=== PATIENT | male | born 1955 | race Caucasian/White ===

== ENCOUNTER 2019-03-03 12:00 | Outpatient (RCR) | payer MEDICAID, SELFPAY ==
--- NOTE | 2019-02-25 13:16 | HP.OTEVAL_ITS ---
Patient's Visit Information JOHN ELMORE is a 63 year old M, referred to Occupational Therapy by ALBA JENNINGS, with a diagnosis of R wrist tenonditis. Date of Evaluation: 01/28/19 Occupational Therapist: Elizabeth Frias, OTR/L - Subjective Subjective: Arrived and noted that pain in right wrist and thumb started about two weeks ago when he went to picking up a foot stool and felt a 'pop'. He noted that since he has been in increased pain. He noted that he has PMHx of 4-5 years ago injury to right wrist with increased ligament damage. Noted that he had Legionnaires' PNA. 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 - Pain R wrist 8 Pain Intensity Range: 7, 10 R thumb 8 Pain Intensity Range: 7, 10 - ROM Wrist: flexion R 0-55, L 0-34; ext R 0-44, L 0-52 MP: R 0-36, L WFL IP: R 0-67, L WFL Radial Abduction: R 0-25, L 0-32 MP: WFL PIP: WFL DIP: WFL - Strength Supervisor Screen Making: R 43, L 59 Lateral Pinch: R 4, L 9 Tripod Pinch: R 9, L 13 Tip-to-Tip Pinch: R held, L 2 - Edema Proximal Phalanx: R 7.1 cm, L 6.9 cm - Sensation Thumb: R 3.61, L 3.22 Index: R 2.83, L 2.83 Middle: R 3.22, L 2.83 Ring: R 3.22, L 2.83 Little: R 3.22, L 3.22 - Special Tests WHAT Test: positive - Quick DASH-Disab of Arm,Shoulder& Hand Quick DASH Score: 52.2725 - Goals Goal:: John to 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 Goal:: John to increased ROM similar to L hand to promote increased LINDSEY Mnd strenght by d/c. Goal:: John to have no more than 1-2/10 pain in and out of brace 4/5 trials 80% of the time by d/c. Goal:: John to be (i) to complete ergonomic and joint protection techniques 4/5 techniques to promote increased ROM by d/c. Goal:: John to be (i) to return to PLOF for all ADL/IAdls 4/5 trials 80% of the time by d/c. Goal:: John to be (I) to complete HEP to promote increased strength and decreased pain 4/5 trials 80% of the time by d/c. - Rehabilitation General Assessment: John completed OT evaluation on this date of 01/28/19. He noted past trauma to right wrist and hand from when he was 14 years old. He exhibits increased pain and decreased strength of R UE. Skilled OT warranted to promote returning to PLOF. Rehabilitation Potential: Good - Anticipated Interventions Anticipated Interventions: A/AAROM/PROM, Strengthening, Edema Control, Triggerpoint Release, Desensitization, Modalities, Orthoses, Joint Protection/Energy Conservation, Ergonomic Education, ADL Training, Caregiver Training, Home Program - Visit Plan Frequency: 2x /Week Duration: 4 Weeks General Plan: John to increase strength, ROM, pain management, and general return to PLOF by d/c. TEXT: Thank you for the opportunity to evaluate your patient. For Medicare and Medicare HMO plans, please review the plan of care and approve it. It will need to be FAXED BACK to us at [phone] for Medicare purposes. Please let me know if there are questions or concerns regarding this plan of care. Physician Signature: Date:
--- NOTE | 2019-03-03 12:23 | HP.OTREVAL ---
ALBA JENNINGS, It has been my pleasure to treat JOHN ELMORE over the last 9 visits for R wrist tenonditis. Please see the progress note below for an update on the occupational therapy plan of care! Subjective: Arrived and noted that still having popping in forearm that is causing pain. Noted he does not feel he has made any progress. Objective/Function: Completed reassessment on this date of 03/03/19: ROM: thumb: - opposition: R 0-29, L WFL. - radial adduction: R 0-50, L WFL. - MP: R 0-43, L WFL. - IP: R 0-70, L WFL. Strength: - projection camera operator: R 47, L 75. - lateral R 10 , L 19. - three jaw dieter: R 10, L 16. Positive Whiting test and olivia. Pain with resistance movements as well as when palpation of A1 serena at thumb. Pain with supination. He has gained strength in projection camera operator and pinch strength. Plan Frequency: 2x /Week Duration: medical hold Visits in this POC: 9 Plan: John will be put on medical hold this time. He noted he has not made any improvement. He has completed conservative treatment for de Quervains of thumb but tenderness with palpation of A1 serena at thumb may indicate trigger finger. Additionally, he is very sensitive around lateral epicondyle and thumb. He has made minimal progress with pain management and is to return to doctor. Goals - Goals Goal:: John to increased R projection camera operator by 15-20 lbs to promote increased strength and endurance of ADL/IADls by d/c. Goal:: John to increased ROM similar to L hand to promote increased LINDSEY Mnd strenght by d/c. Goal:: John to have no more than 1-2/10 pain in and out of brace 4/5 trials 80% of the time by d/c. Goal:: John to be (i) to complete ergonomic and joint protection techniques 4/5 techniques to promote increased ROM by d/c. Goal:: John to be (i) to return to PLOF for all ADL/IAdls 4/5 trials 80% of the time by d/c. Goal:: John to be (I) to complete HEP to promote increased strength and decreased pain 4/5 trials 80% of the time by d/c. Anticipated Interventions Anticipated Interventions: A/AAROM/PROM, Strengthening, Edema Control, Triggerpoint Release, Desensitization, Modalities, Orthoses, Joint Protection/Energy Conservation, Ergonomic Education, ADL Training, Caregiver Training, Home Program Please do not hesitate to contact me at [phone] by phone or if you have questions or concerns regarding this new plan of care! Sincerely, Elizabeth Frias, OTR/L
--- NOTE | 2019-04-01 07:42 | HP.OTDCSUM_ITS ---
HP - OT D/C Summary It has been my pleasure to treat JOHN ELMORE under orders from ALBA JENNINGS, for the diagnosis of R wrist tenonditis for a total of 9 visit(s). Please see the following information for a summary of their discharge status. - Overall Improvement % Improvement: 0 - Objective Objective/Function: Completed reassessment on this date of 03/03/19: ROM: thumb: - opposition: R 0-29, L WFL. - radial adduction: R 0-50, L WFL. - MP: R 0-43, L WFL. - IP: R 0-70, L WFL. Strength: - health social work professor: R 47, L 75. - lateral R 10 , L 19. - three jaw dieter: R 10, L 16. Positive Whiting test and olivia. Pain with resistance movements as well as when palpation of A1 serena at thumb. Pain with supination. He has gained strength in health social work professor and pinch strength. - Goals Patient Goals: Regain Mobility, Regain Strength, Decrease Pain, Return to Work, Improve Fine Motor Skills, Use Hand/Wrist/Arm Normally Again, Sleep Better, Decrease Tingling/Numbness, Increase ROM, Be More Independent in ADLS, Resume Former Household Responsibilities (Cooking,Cleaning,Yard, etc.), Resume Hobbies Goal:: John to increased R health social work professor by 15-20 lbs to promote increased strength and endurance of ADL/IADls by d/c. Goal:: John to increased ROM similar to L hand to promote increased LINDSEY Mnd strenght by d/c. Goal:: John to have no more than 1-2/10 pain in and out of brace 4/5 trials 80% of the time by d/c. Goal:: John to be (i) to complete ergonomic and joint protection techniques 4/5 techniques to promote increased ROM by d/c. Goal:: John to be (i) to return to PLOF for all ADL/IAdls 4/5 trials 80% of the time by d/c. Goal:: John to be (I) to complete HEP to promote increased strength and decreased pain 4/5 trials 80% of the time by d/c. - Plan Plan: John will be put on medical hold this time. He noted he has not made any improvement. He has completed conservative treatment for de Quervains of thumb but tenderness with palpation of A1 serena at thumb may indicate trigger finger. Additionally, he is very sensitive around lateral epicondyle and thumb. He has made minimal progress with pain management and is to return to doctor. - D/C Information If there are questions or concerns regarding this patient's occupational therapy, please fell free to call me at [phone]. Thank you for the referral of this patient. Sincerely, Elizabeth Frias, OTR/L
== END 2019-03-03 19:00 | disposition home or self-care (01) ==
LOC: OT 12:00
DX: M77.8 Other enthesopathies, not elsewhere classified (principal)
CPT/HCPCS: 97166; 97168; 97530; 97760; 97763

== ENCOUNTER 2023-01-19 12:30 | Inpatient (IN) | payer MEDICAID, SELFPAY ==
--- NOTE | 2023-01-19 01:20 | RAD_ITS ---
STUDY: X-RAY CHEST REASON FOR EXAM: Male, 67 years old. Shortness of breath. Lower extremity swelling. TECHNIQUE: PA and lateral views of the chest. COMPARISON: Comparison is made with prior study dated November 05, 2016. FINDINGS: EKG electrodes are seen. There is evidence of increased interstitial markings at the lung bases as well as in the right upper lobe. This most likely represents interstitial scarring. This has progressed as compared to prior study. Hyperinflation. There is no demonstrated pleural abnormality. Sternal cerclage wires and vascular clips are present from a prior sternotomy and coronary artery bypass graft procedure (CABG). Normal mediastinum and jj. Normal visualized pulmonary arteries. There is atherosclerotic calcification of the aortic arch with tortuosity. There are diffuse degenerative changes of the visualized thoracic spine. Normal visualized ribs, clavicles, and shoulders. There is no demonstrated abnormality of the visualized soft tissue structures of the upper abdomen. RAD/Chest PA and Lateral IMPRESSION: Increased interstitial markings in the lower lobes as well as the right upper lobe suggests of scarring. This has progressed as compared to prior study. Electronically Signed: Benji Spivey MD at 14:10 EST ,
[2023-01-19 12:32] VITALS: BP 112/63; PULSE 84; RESP 18; TEMP 36.4; O2SAT 100; BMI 23.7
--- NOTE | 2023-01-19 12:47 | EKG12_ITS ---
Test Reason : EDEMA LEG Blood Pressure : / mmHG Vent. Rate : 062 BPM Atrial Rate : 000 BPM P-R Int : 000 ms QRS Dur : 114 ms QT Int : 436 ms P-R-T Axes : 000 -67 113 degrees QTc Int : 442 ms Atrial fibrillation Left axis deviation Nonspecific ST and T wave abnormality Abnormal ECG Confirmed by SAI ROMERO, AIDE ([id number]), editor news BRADFORD SWEENEY ([id number]) on 01/24/2023 12:22:40 PM Referred By: CLAYTON Confirmed By:AIDE GIBBS MD
[2023-01-19 13:12] LABS: Absolute Lymphocyte Count 1.44 X10^3/uL (0.83-4.51); Absolute Neutrophil Count 3.1 X10^3/uL (2.0-7.7); Basophil# 0.07 X10^3/uL; Basophil% 1.1 % (0-1); Eosinophil# 0.88 X10^3/uL; Eosinophils% 13.7 % (0-5); Hematocrit 38.7 % (40-54); Hemoglobin 12.7 g/dL (13.0-16.5); Lymphocyte # 1.44 X10^3/ul (0.83-4.51); Lymphocyte % 22.5 % (19-41); Mean Corp Hgb Conc 32.8 g/dL (32-36); Mean Corpuscular Hgb 30.1 pg (27.0-32.0); Mean Corpuscular Volume 91.7 fL (80-94); Mean Platelet Vol. 8.9 fl (6.2-12.0); Monocyte# 0.88 X10^3/uL; Monocyte% 13.7 % (0-10); NRBC Flagged by Analyzer 0 % (0-5); Neutrophil # 3.13 X10^3/uL (2.7-7.7); Neutrophil % 48.8 % (47-70); Platelet Count 175 K/mm3 (150-450); RBC Distribution Width CV 13.9 % (11.6-14.6); RBC Distribution Width SD 46.5 fl (35.1-43.9); Red Blood Count 4.22 M/mm3 (4.6-6.2); White Blood Count 6.4 K/mm3 (4.4-11.0)
[2023-01-19 13:19] VITALS: BP 109/75; PULSE 76; RESP 16; O2SAT 99
--- NOTE | 2023-01-19 13:28 | EX.ED.DYSGE1 ---
HPI History of Present Illness Chief Complaint: Edema Informant: patient Narrative Narrative: Patient is a 67-year-old male with history of stroke, colon cancer, a fib (not on any anticoagulation due to nosebleeds), coronary artery status post CABG and heart failure presenting with worsening leg swelling and shortness of breath. Patient states over the past 4 to 5 days he had waxing and waning swelling of his legs. He spoke with his PCP who was concerned since the swelling was going to above his knees. Patient is on diuretic and has had no recent medication changes. He does feel mildly short of breath especially with exertion. Does not report any fever or chills. Also has a history of pneumonia and is wondering if his respiratory symptoms or could be from that. Denies any acute chest pain. No other complaints at this time. Patient reports that his blood pressure is low normally and his blood pressures are sensitive to any medications. PFSH PFSH Home Medications nitroglycerin 0.4 mg sublingual tablet 0.4 mg sublingual Q5M PRN Chest Pain 01/18/13 [History Last Taken Unknown] furosemide 40 mg tablet 40 mg PO DAILY EDEMA 01/19/23 [History Last Taken 01/19/23] losartan 25 mg tablet 25 mg PO DAILY HTN 01/19/23 [History Last Taken 01/18/23] potassium chloride 20 mEq tablet,extended release(part/cryst) 20 meq PO BID SUPPLEMENT 01/19/23 [History Last Taken 01/18/23] spironolactone 25 mg tablet 12.5 mg PO DAILY HTN 01/19/23 [History Last Taken 01/18/23] Allergy/AdvReac Type Severity Reaction Status Date / Time codeine Allergy Hives Verified 01/19/23 13:37 ibuprofen Allergy Hives Verified 01/19/23 13:37 imipramine [Imipramine] Allergy Hives Verified 01/19/23 13:37 ketorolac tromethamine Allergy Hives Verified 01/19/23 13:37 [From Toradol] naproxen [From Naprosyn] Allergy Hives Verified 01/19/23 13:37 propoxyphene napsylate Allergy Hives Verified 01/19/23 13:37 [From Darvocet-N 100] tramadol Allergy Hives Verified 01/19/23 13:37 acetaminophen [From Vicodin] AdvReac Itching Verified 01/19/23 13:37 hydrocodone [From Vicodin] AdvReac Itching Verified 01/19/23 13:37 Social History Smoking Status: Unknown if ever smoked ROS ROS ED Constitutional Constitutional ED: Denies chills or fever(s) ENT ENT ED: Denies rhinorrhea Cardiovascular Cardiovascular: Reports other Details: edema ; Denies chest pain or palpitations Respiratory/Chest Respiratory/Chest: Reports dyspnea and dyspnea on exertion; Denies sputum Gastrointestinal Gastrointestinal: Denies nausea or vomiting Musculoskeletal Musculoskeletal: Denies arthralgias or myalgias Integumentary Denies rash Neurologic Neurologic: Denies headache(s) or weakness EXAM Physical Exam Const Vital Signs: 01/19/23 12:32 01/19/23 13:19 01/19/23 13:19 Temperature 97.5 F L Temperature Source Temporal Pulse Rate 84 Respiratory Rate 18 Respiratory Effort Normal Respiratory Pattern Normal Blood Pressure 112/63 Blood Pressure Mean 79 Pulse Ox 100 Oxygen Delivery Method Room Air Room Air 01/19/23 13:19 Temperature Temperature Source Pulse Rate 76 Respiratory Rate 16 Respiratory Effort Respiratory Pattern Blood Pressure 109/75 Blood Pressure Mean 86 Pulse Ox 99 Oxygen Delivery Method Room Air Positive well nourished and well developed General Appearance ED: well developed and NAD HEENT Reports moist mucous membranes Eyes PERRL Neck supple and no JVD Chest Wall inspection of chest normal and palpation of chest normal Resp normal respiratory effort Resp Narrative: Basilar crackles worse on the right Auscultation: diminished lung sounds right; Negative for wheezes Cardio regular rate and no murmurs Rhythm: abnormal rhythm GI normal to inspection, nondistended, normoactive bowel sounds and non-tender Extremity Extremity Narrative: No obvious deformity. Pitting edema to just above the knees bilateral Neuro oriented x3 Sensorium / Orientation: alert Motor Exam: general weakness Psych mental status grossly normal Skin no rashes or lesions noted Skin Narrative: Slight rubor of the lower extremities present, no wounds or drainage appreciated MDM MDM MDM Narrative Medical decision making narrative: Patient is evaluated for worsening edema and shortness of breath. He has pitting edema up to his knees. Not clammy significant chest pain. Has been compliant with his medications. Differential includes CHF exacerbation, pneumonia and ACS however I think this is less likely given his lack of chest pain. EKG does not show any acute ischemic findings. He does have bilateral swelling with history of atrial fibrillation was on any anticoagulation. Venous duplex obtained to rule out DVT. He does not have any wheezing so low suspicion for CHF. CBC is largely normal. Is a mild anemia with a hemoglobin of 12.7 with no recent labs for comparison. Given no fever or leukocytosis lower suspicion for pneumonia or other infectious etiology. BMP is largely unremarkable. His high-sensitivity troponin is quite elevated at 1064 and his BNP is elevated at 211. I do not have any priors to compare to. My interpretation chest x-ray shows increased interstitial markings and radiology comments that these are progressed compared to prior study but consistent with scarring. Venous duplex obtained because of the lower extremity edema but is negative for DVT. He is not hypoxic or tachycardic and have a lower suspicion for PE. Clinically I suspect this is more of an NSTEMI possibly secondary CHF exacerbation however possible he could have an NSTEMI that is causing his exertional symptoms and edema and reducing his EF. Case is discussed with cardiology on-call, Dr. Evans, who is agreeable with admission to the PCU, cardiology consult and heparin drip. We will also start the patient on 20 mg IV Lasix ( he is given a smaller dose because of his history of hypotension with a lot of medications). Patient is ordered aspirin. Admitted to hospitalist service. Case discussed with Dr. Weaver. Lab Data Attestation: I reviewed the patient's lab results. Labs: Laboratory Results - last 24 hr 01/19/23 12:55 WBC 6.4 RBC 4.22 L Hgb 12.7 L Hct 38.7 L MCV 91.7 MCH 30.1 MCHC 32.8 RDW Std Deviation 46.5 H RDW Coeff of Kylie 13.9 Plt Count 175 MPV 8.9 Immature Gran % (Auto) 0.200 Neut % (Auto) 48.8 Lymph % (Auto) 22.5 Sebastian % (Auto) 13.7 H Eos % (Auto) 13.7 H Baso % (Auto) 1.1 H Absolute Neuts (auto) 3.1 Absolute Lymphs (auto) 1.44 Nucleated RBC % 0 PT 14.5 INR 1.1 APTT 31.7 Sodium 139 Potassium 4.0 Chloride 105 Carbon Dioxide 32.0 Anion Gap 2 L BUN 20 H Creatinine 0.93 Estim Creat Clear Calc 77.40 Est GFR (MDRD) Af Amer 103 Est GFR (MDRD) Non-Af 85 BUN/Creatinine Ratio 21.5 H Glucose 82 Calcium 9.4 Troponin I High Sens 1064 H* B-Natriuretic Peptide 211.1 H Radiography Chest X-Ray - ED: 2 View, Read by ED Physician, Read by Radiologist, Chronic Changes and CHF Diagnostic Testing: Clinical Impression(s) from Imaging Studies Chest X-Ray 01/19/23 01:20 IMPRESSION: Increased interstitial markings in the lower lobes as well as the right upper lobe suggests of scarring. This has progressed as compared to prior study. Electronically Signed: Benji Spivey MD at 14:10 EST , Venous Doppler Study 01/19/23 13:31 Interpretation Summary No evidence for acute deep venous thrombosis bilateral lower extremities with patent and compressible bilateral great saphenous veins. Pulsatile venous flow is noted bilaterally which is suspicious for proximal venous hypertension or obstruction. Clinical correlation would be appropriate. Ordering Physician: Roz Thomas Referring Physician: Trav Copeland Performed By: Willie Corona RVT Rhythm Strip Rhythm Strip: A-fib Rate: 62 Ectopy: None EKG Initial EKG: Interpretation: Atrial Fibrillation Comments: Atrial fibrillation rate of 62 bpm Left axis deviation Nonspecific T wave changes Compared to prior patient is now in atrial fibrillation but does have prior EKGs that show A-fib Management Discussion w/another healthcare provider: Hospitalist and Hydraulic Billet Maker (cardiology ) Discharge Plan Triage Chief Complaint: Edema ED Provider: Roz Thomas Dx/Rx/DC Orders Clinical Impression: Acute non-ST elevation myocardial infarction (NSTEMI), CAD (coronary artery disease), SEXTON (dyspnea on exertion), Atrial fibrillation Primary Care Provider: Trav Copeland Disposition Disposition: Acute Care Hospital [facility], [place]
--- NOTE | 2023-01-19 13:31 | VDLE_ITS ---
Reason For Study: BLE Swelling RIGHT LEFT GSV is normal. GSV is normal. CFV is compressible, spontaneous, competent CFV is compressible, spontaneous, competent, and demonstrates pulsatile venous flow. and demonstrates pulsatile venous flow. FV is compressible, spontaneous, competent FV is compressible, spontaneous, competent and demonstrates pulsatile venous flow. and demonstrates pulsatile venous flow. POP V is compressible, spontaneous, competent POP V is compressible, spontaneous, competent and demonstrates pulsatile venous flow. and demonstrates pulsatile venous flow. T/P Trunk is compressible. T/P Trunk is compressible. PTV is compressible. PTV is compressible. RT PerV is compressible. LT PerV is compressible. Procedure This is a venous duplex using B-mode, color flow and spectral Doppler. Exam performed portable in ED. The exam was diagnostic. A preliminary report was called and/or faxed to . VL/Venous Duplex US - Tyrese Extrem Interpretation Summary No evidence for acute deep venous thrombosis bilateral lower extremities with p atent and compressible bilateral great saphenous veins. Pulsatile venous flow is noted bi laterally which is suspicious for proximal venous hypertension or obstruction. Clinical correlatio n would be appropriate. Ordering Physician: Roz Thomas Referring Physician: Trav Copeland Performed By: Willie Corona RVT
[2023-01-19 13:32] LABS: BNP,B-Type NATRIURETIC PEPTIDE 211.1 pg/mL (0-100)
[2023-01-19 13:52] LABS: Anion Gap 2 (5-15); BUN 20 mg/dL (7-18); BUN/Creat Ratio 21.5 RATIO (10-20); Calcium,Total 9.4 mg/dL (8.5-10.1); Chloride 105 mmol/L (98-107); Creatinine, Serum 0.93 mg/dL (0.70-1.30); EST Glomerular Filtration Rate 85 mL/min (>60); Est Glom Filt Rate - Afr Amer 103 mL/min (>60); Glucose 82 mg/dL (74-106); Sodium Level 139 mmol/L (136-145); Troponin-I HS 1064 pg/mL (3.0-78.0)
--- NOTE | 2023-01-19 15:30 | PCM.HP.STD ---
HPI - General General Date of Admission: 01/19/23 Date of Service: 01/19/23 Chief Complaint: Increased lower extremity edema, intermittent chest discomfort. HPI Narrative The patient is a 67 y/o M w/ PMHx: Former tobacco use, Hx Colon CA s/p partial colectomy in remission, PAF, Hx TIA, HTN, HLD, Chronic normocytic anemia, HF unclear type who presents to the [facility] ED on 01/19/23 with history of significantly worsening bilateral lower extremity swelling, orthopnea, dyspnea worse with exertion as well as intermittent episodes in the midsternal region of sharp chest discomfort that seems to occur primarily with activity with associated increased dyspnea and improves with rest prompting eventual ED evaluation per PCP recommendation. Patient is on a diuretic and has had no recent medication changes of note. Patient does in the ED state that his blood pressure is normally low and he is very sensitive to medications. He notes that when he has the chest discomfort it is very sharp and short-lived but rates it potentially 6-7 out of 10 in severity. He is currently chest pain-free. Work-up in the ED included T97.5, heart rate 84, BP 112/63, respiratory rate 18, 100% room air, CBC with WBC 6.4, hemoglobin 12.7, MCV 91.7, platelet 175 without marked shift, unremarkable coags, BMP not marked appearing, BNP 211.1, initial troponin 1064 with repeat delta 786, chest x-ray with increased interstitial markings in the lower lungs as well as the right upper lobe suggestive of scarring which has progressed since prior study, duplex ultrasound of bilateral lower extremities with no acute evidence of DVT, EKG with rate controlled atrial fibrillation with nonspecific T wave changes with no acute evidence of ischemia. ED did discuss case upon presentation with Dr. Stewart for NSTEMI with requested heparin drip start and low-dose Lasix IV administration. In the ED patient ministered aspirin once he is to milligram p.o. x1, Lasix 20 mg IV x1, initiated on heparin drip with bolus. [facility]LY [facility] Medical History (Updated 01/19/23 @ 20:[address] Jody Weaver MD) CAD (coronary artery disease) Congestive heart failure (CHF) Former smoker History of colon cancer Hyperlipidemia Hypertension Myocardial infarct TIA (transient ischemic attack) Home Medications nitroglycerin 0.4 mg sublingual tablet 0.4 mg sublingual Q5M PRN Chest Pain 01/18/13 [History Last Taken Unknown] furosemide 40 mg tablet 40 mg PO DAILY EDEMA 01/19/23 [History Last Taken 01/19/23] losartan 25 mg tablet 25 mg PO DAILY HTN 01/19/23 [History Last Taken 01/18/23] potassium chloride 20 mEq tablet,extended release(part/cryst) 20 meq PO BID SUPPLEMENT 01/19/23 [History Last Taken 01/18/23] spironolactone 25 mg tablet 12.5 mg PO DAILY HTN 01/19/23 [History Last Taken 01/18/23] Allergy/AdvReac Type Severity Reaction Status Date / Time codeine Allergy Hives Verified 01/19/23 13:37 ibuprofen Allergy Hives Verified 01/19/23 13:37 imipramine [Imipramine] Allergy Hives Verified 01/19/23 13:37 ketorolac tromethamine Allergy Hives Verified 01/19/23 13:37 [From Toradol] naproxen [From Naprosyn] Allergy Hives Verified 01/19/23 13:37 propoxyphene napsylate Allergy Hives Verified 01/19/23 13:37 [From Darvocet-N 100] tramadol Allergy Hives Verified 01/19/23 13:37 acetaminophen [From Vicodin] AdvReac Itching Verified 01/19/23 13:37 hydrocodone [From Vicodin] AdvReac Itching Verified 01/19/23 13:37 Family History (Updated 01/19/23 @ 20:[address] Jody Weaver MD) Father Heart disease Hypertension CAD (coronary artery disease) unable to obtain (Unknown maternal family history, he has not seen his mother since early youth and is unaware of her history.) Surgical History (Updated 01/19/23 @ 20:[address] Jody Weaver MD) History of hand surgery Hx of CABG S/P partial colectomy Social History (Updated 01/19/23 @ 20:[address] Jody Weaver MD) household members: none Smoking Status: Former smoker how long ago did patient quit smoking: Quit in the 1980s, smoked 3 ppd from teen until quit age 30. alcohol intake: never substance use type: does not use ROS ROS Narrative Admission Review of Systems: CONSTITUTIONAL: No weight loss, fever, chills, + weakness or fatigue. HEENT: Eyes: No visual loss, blurred vision, double vision or yellow sclerae. Ears, Nose, Throat: No hearing loss, sneezing, congestion, runny nose or sore throat. SKIN: + Bilateral lower extremity venous stasis skin changes, occasional staged ecchymoses, abrasion. CARDIOVASCULAR: + Chest pain, edema, mild orthopnea. No palpitations, syncopal events. RESPIRATORY: + Shortness of breath. No cough or sputum, wheezing, hemoptysis. GASTROINTESTINAL: No anorexia, nausea, vomiting or diarrhea, abdominal pain, melena, BRBPR. GENITOURINARY: No dysuria, frequency, urgency or retention. NEUROLOGICAL: No headache, dizziness, syncope, paralysis, ataxia, numbness or tingling in the extremities, focal weakness, change in bowel or bladder control, seizure. MUSCULOSKELETAL: + muscle, back pain, joint pain or stiffness. HEMATOLOGIC: + anemia, easy bleeding/bruising. LYMPHATICS: No enlarged nodes. No history of splenectomy. PSYCHIATRIC: No history of depression or anxiety. ENDOCRINOLOGIC: No reports of sweating, cold or heat intolerance. No polyuria or polydipsia. ALLERGIES: + Significant history of hives. Vital Signs Vital Signs Vital Signs: 01/19/23 12:32 01/19/23 13:19 01/19/23 13:19 Temperature 97.5 F L Temperature Source Temporal Pulse Rate 84 Respiratory Rate 18 Respiratory Effort Normal Respiratory Pattern Normal Blood Pressure 112/63 Blood Pressure Mean 79 Pulse Ox 100 Oxygen Delivery Method Room Air Room Air 01/19/23 13:19 Temperature Temperature Source Pulse Rate 76 Respiratory Rate 16 Respiratory Effort Respiratory Pattern Blood Pressure 109/75 Blood Pressure Mean 86 Pulse Ox 99 Oxygen Delivery Method Room Air Weight Weight: 165 lb 6.4 oz Body Mass Index (BMI) 23.7 Physical Exam Narrative Physical Examination: General: Awake, alert, oriented x 3 and cooperative, seated upright in the ED bed in no apparent distress, denies any dyspnea currently or chest pain. Skin: Normal color, normal turgor, no icterus, no cyanosis except occasional staged ecchymoses, abrasion and metabolic bilateral lower extremity venous stasis skin changes. HEENT: AT/NC, EOMI, PERRLA, MMM, no carotid bruits, +JVD noted. Lungs: Diminished, greater bases, appropriate effort, no rales, ronchi or wheezing. Heart: Irregular, rate controlled; no gallop, rub audible. Abdomen: Soft, NTTP, ND, distant normal BS, no HSM. Extremities: No cyanosis, no clubbing, significant pedal to proximal irvin 2-3+ pitting edema with venous stasis skin changes as noted. Neurological: Patient awake, alert, oriented as noted, cognitive function intact; pupils equally reactive to light and accommodation, cranial nerves II-XII grossly normal, moving all 4 extremities, no focal deficits, strength moderately to severely global decreased secondary to acute presentation complaints. Psychiatric: Affect appears fatigued, no acute evidence of depressive or anxiety feelings. Results Lab / Micro Data 01/19/23 12:55 01/19/23 12:55 Labs: Laboratory Results - last 24 hr 01/19/23 12:55: WBC 6.4, RBC 4.22 L, Hgb 12.7 L, Hct 38.7 L, MCV 91.7, MCH 30.1, MCHC 32.8, RDW Std Deviation 46.5 H, RDW Coeff of Kylie 13.9, Plt Count 175, MPV 8.9, Immature Gran % (Auto) 0.200, Neut % (Auto) 48.8, Lymph % (Auto) 22.5, [place] % (Auto) 13.7 H, Eos % (Auto) 13.7 H, Baso % (Auto) 1.1 H, Absolute Neuts (auto) 3.1, Absolute Lymphs (auto) 1.44, Nucleated RBC % 0, Sodium 139, Potassium 4.0, Chloride 105, Carbon Dioxide 32.0, Anion Gap 2 L, BUN 20 H, Creatinine 0.93, Estim Creat Clear Calc 77.40, Est GFR (MDRD) Af Amer 103, Est GFR (MDRD) Non-Af 85, BUN/Creatinine Ratio 21.5 H, Glucose 82, Calcium 9.4, Troponin I High Sens 1064 H*, B-Natriuretic Peptide 211.1 H Rhythm Strip Rhythm Strip: A-fib Rate: 62 Ectopy: None Imagaing Radiology Impression Chest X-Ray 01/19/23 01:20 IMPRESSION: Increased interstitial markings in the lower lobes as well as the right upper lobe suggests of scarring. This has progressed as compared to prior study. Electronically Signed: Benji Spivey MD at 14:10 EST , Assessment & Plan Assessment/Plan (1) Acute non-ST elevation myocardial infarction (NSTEMI): PLAN: Plan The patient is a 67 y/o M w/ PMHx: Former tobacco use, Hx Colon CA s/p partial colectomy in remission, PAF, Hx TIA, HTN, HLD, Chronic normocytic anemia, HF unclear type who presents to the [facility] ED on 01/19/23 with history of significantly worsening bilateral lower extremity swelling, orthopnea, dyspnea worse with exertion as well as intermittent episodes in the midsternal region of sharp chest discomfort that seems to occur primarily with activity with associated increased dyspnea and improves with rest prompting eventual ED evaluation per PCP recommendation. #1. Chest Pain w/ Acute NSTEMI, unclear specific type: EKG in ED w/ with rate controlled atrial fibrillation with no acute evidence of ischemia, CXR w/ increased interstitial markings in the lower lungs as well as the right upper lobe suggestive of scarring mildly increased from previous Trop elevated, initial 1064 with repeat delta 786. Will admit to PCU, maintain on a monitored bed, continue serial cardiac enzymes and EKGs. Obtain magnesium level upon admission. Continue heparin drip. Continue medical management w/ asa, statin w/ AM FLP, low-dose beta-precious and low-dose lisinopril. ECHO requested. Cardiology consulted with evaluation pending. In case of decision for cardiac catheterization will need an [employer]ESSING TECHNICIAN status after midnight. ASA, NG. #2. Acute Decompensated HF, unclear specific type: Patient administered IV lasix in the ED, will maintain on cardiac telemetry, obtain cardiac enzyme series, obtain serial EKGs, continue IV lasix diuresis as BP allows, monitor I/Os, continue medical therapy with aspirin, statin, lisinopril regimen as well as low-dose beta-precious therapy, obtain TSH and magnesium level, echocardiogram quested, place neck Bishop wraps. #3. PAF: EKG with rate controlled atrial fibrillation: We will continue patient home low-dose Coreg regimen, not chronically anticoagulated and patient reports that this is because he only had it perioperatively but he is currently again in A-fib, currently on heparin drip as noted for #1 and will need to reevaluate potential need for chronic anticoagulant therapy. #4. Hypertension: Continue home regimen including Coreg, lisinopril, IV Lasix as noted, PRN hydralazine. #5. Hyperlipidemia: We will continue home statin and Zetia regimen, FLP in AM. #6. History of TIA: We will continue aspirin, statin, hypertensive regimen as noted with no DM history. #7. History colon cancer: Status post partial colectomy, considered in remission. #8. Former tobacco use: Encourage continued tobacco cessation. #9. DVT prophylaxis: We will maintain on heparin drip as noted. #10. CODE status: Patient does not have healthcare power of admitted attorneys or living will in place but notes his 2 daughters June and July would be his decision makers if necessary. Discussed CODE status at length including difference between FULL code, DNR-CCA and DNR-CC status. Following discussions about the differences in these status, requested Full Code status. Advanced Care Planning Face to Face Time: 16 minutes. Charges/Coding Visit Charges Inpatient E&M: 10087 Init Hosp L3 Procedures Hospitalists Procedures: 62444 Advncd Care Plan 30 Min
[2023-01-19 15:33] LABS: International Normalized Ratio 1.1; Prothrombin Time (Protime)PT. 14.5 SECONDS (11.7-14.9)
[2023-01-19 15:34] LABS: Partial Thromboplast Time 31.7 Seconds (24.1-36.2)
[2023-01-19] MEDS: Furosemide 20 MG/2 ML VIAL IV ×2 (15:58→21:03)
[2023-01-19] MEDS: Heparin Injection (Vial) 5,000 UNIT/ML VIAL 4000 UNIT IV (15:59)
[2023-01-19] MEDS: HEPARIN/D5w 25,000 UNITS 25,000 UNITS/250 ML IV.SOLN. 9 UNITS CONT INF (16:02)
--- NOTE | 2023-01-19 16:04 | NURSING ---
PCU WHITE NSTEMI
[2023-01-19 16:46] LABS: Magnesium 2.1 mg/dL (1.6-2.6)
[2023-01-19 17:10] VITALS: BP 109/67; PULSE 82; RESP 20; TEMP 37.3; O2SAT 97
--- NOTE | 2023-01-19 17:22 | ED.RN ---
pt apprehensive about taking aspirin. explained rationale why dr wants him to ahve it. pt states aspirin drops his blood pressure and it happens all at once and he crashes. states most meds do that i cant take much without it dropping my bp since my stroke. after much conversation pt agreeable. pt went to the floor before able to give called progressive care to let them know why there was a depay and med still needed given.
[2023-01-19 17:26] VITALS: BP 112/64; PULSE 76; RESP 18; O2SAT 99
[2023-01-19 17:39] VITALS: BMI 22.6
--- NOTE | 2023-01-19 17:44 | ECHOD_ITS ---
Reason For Study: CHF Procedure This was a 2D Doppler, Color Flow transthoracic echocardiogram. Patient deferred Definity. Exam performed portable in patient room. Left Ventricle Moderately dilated left ventricle. The estimated ejection fraction is 30-35 %. Right Ventricle Normal right ventricle. Normal systolic function. Atria The left atrium is moderately enlarged. The right atrium is mildly enlarged. Mitral Valve The mitral valve is structurally normal. No prolapse or stenosis seen. Mild-Moderate (1-2+) mitral valve insufficiency. Tricuspid Valve Normal tricuspid valve. Mild tricuspid valve insufficiency. Aortic Valve Mild diffuse aortic valve calcification. Mild (1+) aortic valve insufficiency. Pulmonic Valve The pulmonic valve is not well visualized. Great Vessels Normal aortic root. Pericardium/Pleural No pericardial effusion. MMode/2D Measurements & Calculations LVIDd: 6.7 cm IVSd: 1.1 cm Ao root diam: 3.5 cm LVIDs: 6.3 cm LVPWd: 0.87 cm LA dimension: 4.9 cm RVDd: 4.5 cm FS: 6.4 % LAV(MOD-bp): 133.8 ml LA A4 area: 35.4 cm2 RA A4 area: 21.5 cm2 LAV(MOD-bp) Indexed: 71.0 ml/m2 LAV(MOD-sp2): 108.8 ml LAV(MOD-sp4): 135.1 ml TAPSE: 1.9 cm Time Measurements MV dec time: 0.16 sec Doppler Measurements & Calculations MV E max isrrael: 91.4 cm/sec Lat Peak E' Isrrael: 8.5 cm/sec Med Peak E' Isrrael: 6.9 cm/sec MV A max isrrael: 19.9 cm/sec E/E' lat: 10.7 E/E' med: 13.2 MV E/A: 4.6 MV V2 max: 100.7 cm/sec MV P1/2t max isrrael: 101.4 cm/sec Ao V2 max: 126.3 cm/sec MV max P.1 mmHg MV P1/2t: 71.0 msec Ao max P.4 mmHg MV V2 mean: 51.6 cm/sec Ao V2 mean: 81.6 cm/sec MV mean P.4 mmHg MV dec slope: 418.3 cm/sec2 Ao mean P.1 mmHg MV V2 VTI: 27.2 cm MVA(P1/2t): 3.1 cm2 Ao V2 VTI: 27.1 cm AV (velocity ratio): 0.70 AI max isrrael: 359.3 cm/sec LV V1 max: 94.2 cm/sec MR max isrrael: 419.3 cm/sec AI max P.7 mmHg LV V1 max P.6 mmHg MR max P.3 mmHg LV V1 mean P.8 mmHg MR mean isrrael: 320.7 cm/sec AI dec slope: 217.3 cm/sec2 LV V1 mean: 62.2 cm/sec MR mean P.5 mmHg AI P1/2t: 484.4 msec LV V1 VTI: 18.9 cm MR VTI: 142.5 cm PA V2 max: 87.6 cm/sec TR max isrrael: 288.1 cm/sec TR max P.2 mmHg ECHO/Echo Complete Interpretation Summary The estimated ejection fraction is 30-35 %. Severe LV systolic dysfunction Mild to moderate MR Mild AI Mild TR No previous echo to compare. Ordering Physician: Jody Weaver Performed By: Ousmane Rodriguez RCS
[2023-01-19] MEDS: Aspirin 81 MG TAB.CHEW 162 MG PO (18:15)
[2023-01-19 18:48] LABS: Troponin-I HS 786 pg/mL (3.0-78.0)
[2023-01-19 20:31] LABS: Troponin-I HS 853 pg/mL (3.0-78.0)
[2023-01-19 21:00] VITALS: BP 99/72; PULSE 72; RESP 18; TEMP 36.6; O2SAT 97
[2023-01-19] MEDS: 0.9% Saline Lock 10 ML Syringe IV (21:03)
[2023-01-19 22:51] LABS: Partial Thromboplast Time 69.7 Seconds (24.1-36.2)
[2023-01-20] LABS: Troponin-I HS 850 pg/mL (3.0-78.0)
[2023-01-20] MEDS: Acetaminophen 325 MG Tablet 650 MG PO (01:10)
[2023-01-20 02:10] VITALS: BMI 22.6
[2023-01-20 03:15] VITALS: BP 88/56; PULSE 63; RESP 16; TEMP 36.4; O2SAT 99
[2023-01-20 05:29] VITALS: BP 87/66; PULSE 106; RESP 16; TEMP 36.3; O2SAT 97
[2023-01-20 05:34] LABS: Absolute Lymphocyte Count 2.08 X10^3/uL (0.83-4.51); Absolute Neutrophil Count 3.8 X10^3/uL (2.0-7.7); Basophil# 0.09 X10^3/uL; Basophil% 1.2 % (0-1); Eosinophil# 0.98 X10^3/uL; Eosinophils% 12.6 % (0-5); Hematocrit 39.7 % (40-54); Hemoglobin 13.3 g/dL (13.0-16.5); Lymphocyte # 2.08 X10^3/ul (0.83-4.51); Lymphocyte % 26.7 % (19-41); Mean Corp Hgb Conc 33.5 g/dL (32-36); Mean Corpuscular Hgb 30.6 pg (27.0-32.0); Mean Corpuscular Volume 91.5 fL (80-94); Mean Platelet Vol. 8.7 fl (6.2-12.0); Monocyte# 0.78 X10^3/uL; NRBC Flagged by Analyzer 0 % (0-5); Neutrophil # 3.84 X10^3/uL (2.7-7.7); Neutrophil % 49.2 % (47-70); Platelet Count 176 K/mm3 (150-450); RBC Distribution Width CV 13.8 % (11.6-14.6); RBC Distribution Width SD 46.4 fl (35.1-43.9); Red Blood Count 4.34 M/mm3 (4.6-6.2); White Blood Count 7.8 K/mm3 (4.4-11.0)
[2023-01-20 05:50] LABS: Partial Thromboplast Time 61.7 Seconds (24.1-36.2)
[2023-01-20 06:00] VITALS: BMI 22.6
[2023-01-20 06:22] LABS: ALB/GLOB Ratio 0.9 RATIO (0.9-2.4); AST(SGOT) 30 U/L (15-37); Alanine Aminotransfer ALT/SGPT 25 U/L (16-61); Albumin, Serum 3.2 g/dL (3.2-5.0); Alkaline Phosphatase 81 U/L (45-117); Anion Gap 5 (5-15); BUN 19 mg/dL (7-18); BUN/Creat Ratio 19.8 RATIO (10-20); Calcium,Total 9.1 mg/dL (8.5-10.1); Chloride 104 mmol/L (98-107); Cholesterol 161 mg/dL (200); Creatinine, Serum 0.96 mg/dL (0.70-1.30); EST Glomerular Filtration Rate 82 mL/min (>60); Est Glom Filt Rate - Afr Amer 100 mL/min (>60); Estimated Creatinine Clearance 73.34 ml/min; Globulin 3.4 g/dL (2.2-4.2); Glucose 91 mg/dL (74-106); High Density Lipoprotein 47 mg/dL; Protein, Total 6.6 g/dL (6.4-8.2); Sodium Level 139 mmol/L (136-145); Triglycerides 61 mg/dL; Very Low Density Lipoprotein 12 mg/dL (5-40)
[2023-01-20 07:56] VITALS: O2SAT 94
--- NOTE | 2023-01-20 08:36 | PCM.PN.HOSP ---
Reason for Visit Reason for Visit: Diagnoses Non-ST elevation (NSTEMI) myocardial infarction (01/19/23) Subjective Subjective Patient is a 67-year-old male with past medical history single for coronary artery disease with previous CABG who presented with chest pain Objective Data Objective Data Vital Signs: Vital Signs Temp Pulse Resp BP Pulse Ox O2 Del Method 97.3 F L 106 H 16 87/66 L 97 Room Air 01/20/23 05:29 01/20/23 05:29 01/20/23 05:29 01/20/23 05:29 01/20/23 05:29 01/20/23 05:29 Oxygen Delivery Method Room Air Weight: 71.4 kg Body Mass Index (BMI) 22.6 Intake & Output: Intake and Output for Last 24 Hours 01/18/23 01/19/23 01/20/23 23:59 23:59 23:59 Intake Total 872.1 / 872.1 0 / 0 Output Total 1420 / 1420 400 / 400 Balance -547.9 / -547.9 -400 / -400 Lab / Micro Data 01/20/23 05:30 01/20/23 05:30 Labs: Laboratory Results - last 24 hr 01/19/23 12:55: WBC 6.4, RBC 4.22 L, Hgb 12.7 L, Hct 38.7 L, MCV 91.7, MCH 30.1, MCHC 32.8, RDW Std Deviation 46.5 H, RDW Coeff of Kylie 13.9, Plt Count 175, MPV 8.9, Immature Gran % (Auto) 0.200, Neut % (Auto) 48.8, Lymph % (Auto) 22.5, [place] % (Auto) 13.7 H, Eos % (Auto) 13.7 H, Baso % (Auto) 1.1 H, Absolute Neuts (auto) 3.1, Absolute Lymphs (auto) 1.44, Nucleated RBC % 0, PT 14.5, INR 1.1, APTT 31.7, Sodium 139, Potassium 4.0, Chloride 105, Carbon Dioxide 32.0, Anion Gap 2 L, BUN 20 H, Creatinine 0.93, Estim Creat Clear Calc 77.40, Est GFR (MDRD) Af Amer 103, Est GFR (MDRD) Non-Af 85, BUN/Creatinine Ratio 21.5 H, Glucose 82, Calcium 9.4, Magnesium 2.1, Troponin I High Sens 1064 H*, B-Natriuretic Peptide 211.1 H 01/19/23 18:08: Troponin I High Sens 786 H* 01/19/23 19:36: Troponin I High Sens 853 H* 01/19/23 22:26: APTT 69.7 H 01/19/23 23:22: Troponin I High Sens 850 H* 01/20/23 05:30: WBC 7.8, RBC 4.34 L, Hgb 13.3, Hct 39.7 L, MCV 91.5, MCH 30.6, MCHC 33.5, RDW Std Deviation 46.4 H, RDW Coeff of Kylie 13.8, Plt Count 176, MPV 8.7, Immature Gran % (Auto) 0.300, Neut % (Auto) 49.2, Lymph % (Auto) 26.7, [place] % (Auto) 10.0, Eos % (Auto) 12.6 H, Baso % (Auto) 1.2 H, Absolute Neuts (auto) 3.8, Absolute Lymphs (auto) 2.08, Nucleated RBC % 0, APTT 61.7 H, Sodium 139, Potassium 4.0, Chloride 104, Carbon Dioxide 30.0, Anion Gap 5, BUN 19 H, Creatinine 0.96, Estim Creat Clear Calc 73.34, Est GFR (MDRD) Af Amer 100, Est GFR (MDRD) Non-Af 82, BUN/Creatinine Ratio 19.8, Glucose 91, Calcium 9.1, Total Bilirubin 0.80, AST 30, ALT 25, Alkaline Phosphatase 81, Total Protein 6.6, Albumin 3.2, Globulin 3.4, Albumin/Globulin Ratio 0.9, Triglycerides 61, Cholesterol 161, LDL Cholesterol 102, VLDL Cholesterol 12, HDL Cholesterol 47 Radiography Diagnostic Testing: Radiology Impression Chest X-Ray 01/19/23 01:20 IMPRESSION: Increased interstitial markings in the lower lobes as well as the right upper lobe suggests of scarring. This has progressed as compared to prior study. Electronically Signed: Benji Spivey MD at 14:10 EST , Venous Doppler Study 01/19/23 13:31 Interpretation Summary No evidence for acute deep venous thrombosis bilateral lower extremities with patent and compressible bilateral great saphenous veins. Pulsatile venous flow is noted bilaterally which is suspicious for proximal venous hypertension or obstruction. Clinical correlation would be appropriate. Ordering Physician: Roz Thomas Referring Physician: Trav Copeland Performed By: Willie Corona RVT Rhythm Strip Rhythm Strip: A-fib Rate: 62 Ectopy: None Physical Exam Narrative GENERAL: cooperative HEENT: Atraumatic; normocephalic EYES; Anicteric, Normal Conjunctiva NECK; supple, normal thyroid, RESPIRATORY: Diminished to auscultation CARDIOVASCULAR: Regular S1 S2, GI: soft, normoactive bowel sounds, : No Renal angle tenderness; EXTREMITIES: No edema, no clubbing, MUSCULOSKELETAL: no muscle wasting NEURO: Awake; no lateralizing signs. SKIN: No Rash PSYCH; Flat affect Assessment & Plan Assessment/Plan (1) Acute non-ST elevation myocardial infarction (NSTEMI): PLAN: Plan Patient is a 67-year-old male with past medical history single for coronary artery disease with previous CABG who presented with chest pain 1. Acute non-STEMI ? Patient is a 67-year-old gentleman with coronary artery disease status post CABG who presented with chest pain found to have elevated troponin consistent with acute non-STEMI. Treatment initiated per protocol consult placed to cardiology 2.Acute decompensated CHF ? Unclear type Echo ordered for EF assessment, placed on strict input and output Daily weight IV diuretics 3. Coronary artery disease ? With previous CABG 4. Paroxysmal atrial fibrillation ? Rate controlled not on systemic anticoagulation due to previous recurrent epistaxis 5. History of previous cerebellar CVA 6. Hypertension - Blood pressure on the low side we will continue with monitoring 7. History of colon CA ? Status post partial colectomy currently remission 8. Anemia - Secondary to chronic disorder monitoring H&H and transfuse if patient becomes symptomatic or hemoglobin falls below 7 9. DVT prophylaxis Patient on high Time spent in the patient's overall evaluation,decision-making process, review of diagnostic data, adjustment of management, discussion with other providers, nursing nursing and ancillary staff involved in patient's care documentation, 52. Minutes Charges/Coding Visit Charges Inpatient E&M: 24332 Subs Hosp L3
[2023-01-20 09:00] VITALS: BP 116/79; PULSE 67; RESP 16; TEMP 36.7; O2SAT 97
[2023-01-20] MEDS: Carvedilol 3.125 MG TABLET PO (09:00)
[2023-01-20] MEDS: 0.9% Saline Lock 10 ML Syringe IV (09:00)
[2023-01-20] MEDS: Furosemide 20 MG/2 ML VIAL IV (09:00)
[2023-01-20] MEDS: Aspirin 81 MG TAB.CHEW PO (09:00)
--- NOTE | 2023-01-20 10:00 | CASEMGMT ---
RN VLADIMIR Face to Face with patient for initial transition planning/care coordination assessment. RN CM introduced self and role at [facility]. Patient lying in bed, alert and oriented. Patient willing to participate in assessment and is able to answer all questions appropriately. Care providers, pharmacy, and demographics verified. Patient wishes to discharge home, denies need for home health at this time. Patient states he has no further needs or concerns at this time. CM to follow for discharge planning needs that may arise. PCP: Dinorah Specialists: SAMEERA Garcia education spec [facility]erred [facility]acy: [facility] Insurance: [employer] Private Prescription Benefit: yes Living Will/HPOA: none LNOK: daughters Living Arrangements: Patient lives alone in a first floor apartment with no steps to enter. Patient states he is independent at home. Transportation: self, friend DME/HHC: Patient has shower chair, raised toilet, cane, walker, grab bars, and bp cuff at home. No previous HHC or SNF. Patient has waiver program and is working to get [facility]. CM at [facility] is Zoe Barboza RN CM discussed CCN program with patient, declined referral. Information card for CCN provided to patient. Disposition Plan: Patient to discharge home with family support and follow-up plans in place. Jazmin DE LEÓN, RN, CM
[2023-01-20] MEDS: Gabapentin 100 MG Capsule PO ×3 (10:01→17:50)
[2023-01-20 12:13] LABS: Partial Thromboplast Time 43.8 Seconds (24.1-36.2)
--- NOTE | 2023-01-20 13:33 | PCM.CONS.C ---
Assessment & Plan Assessment/Plan (1) Cerebellar cerebrovascular accident (CVA) without late effect: (2) Colon cancer: (3) Atrial fibrillation: (4) Acute non-ST elevation myocardial infarction (NSTEMI): PLAN: Plan Patient seen and evaluated today at bedside in progressive care unit Along with the nursing staff This patient has extensive cardiac history Had severe CAD with prior multiple MIs With CABG more than 10 years ago time for done at [facility] He follow-up with the supervisor cellars at [place] This presentation he had symptoms of chest pain With a clinical diagnosis of non-ST elevation NH, high sensitive troponin up to 850. Patient had A-fib with RVR noted currently he is not on any anticoagulation Coronary history, anticoagulation continued due to nasal bleed He had a history of stroke with no residual deficit. Cardiac care plan recommendations; I discussed in detail the cardiac care plan Which include medical therapy patient currently on anticoagulation with heparin she is also on beta-precious carvedilol aspirin atorvastatin. Has renal insufficiency with elevated creatinine mildly The echocardiographic evaluation showed EF severely reduced ejection fraction the range of 30-35% I discussed the need of further assessment and evaluation by cardiac cath to assess progression of CAD as well to evaluate the bypass graft Patient would like to be seen at [facility] with his supervisor cellars. Patient will continue current treatment symptoms of chest pain resolved no further episode of chest pain. And once stable clinically he can be transferred to see his supervisor cellars at [facility]. Sondra Evans MD,[facility] HPI Consult Data Date of Consult: 01/21/23 HPI Narrative Reason for Consultation: CAD status post CABG, non-STEMI HPI Narrative: JORGE LUIS ELMORE, is a 67 M who presents [facility] Medical History (Updated 01/19/23 @ 20:[address] Jody Weaver MD) CAD (coronary artery disease) Congestive heart failure (CHF) Former smoker History of colon cancer Hyperlipidemia Hypertension Myocardial infarct TIA (transient ischemic attack) Home Medications nitroglycerin 0.4 mg sublingual tablet 0.4 mg sublingual Q5M PRN Chest Pain 01/18/13 [History Last Taken Unknown] furosemide 40 mg tablet 40 mg PO DAILY EDEMA 01/19/23 [History Last Taken 01/19/23] losartan 25 mg tablet 25 mg PO DAILY HTN 01/19/23 [History Last Taken 01/18/23] potassium chloride 20 mEq tablet,extended release(part/cryst) 20 meq PO BID SUPPLEMENT 01/19/23 [History Last Taken 01/18/23] spironolactone 25 mg tablet 12.5 mg PO DAILY HTN 01/19/23 [History Last Taken 01/18/23] Allergy/AdvReac Type Severity Reaction Status Date / Time codeine Allergy Hives Verified 01/19/23 13:37 ibuprofen Allergy Hives Verified 01/19/23 13:37 imipramine [Imipramine] Allergy Hives Verified 01/19/23 13:37 ketorolac tromethamine Allergy Hives Verified 01/19/23 13:37 [From Toradol] naproxen [From Naprosyn] Allergy Hives Verified 01/19/23 13:37 propoxyphene napsylate Allergy Hives Verified 01/19/23 13:37 [From Darvocet-N 100] tramadol Allergy Hives Verified 01/19/23 13:37 acetaminophen [From Vicodin] AdvReac Itching Verified 01/19/23 13:37 hydrocodone [From Vicodin] AdvReac Itching Verified 01/19/23 13:37 Family History (Updated 01/19/23 @ 20:[address] Jody Weaver MD) Father Heart disease Hypertension CAD (coronary artery disease) Family History unable to obtain Surgical History (Updated 01/20/23 @ 13:[address] Sondra Evans MD) History of hand surgery Hx of CABG S/P partial colectomy Status post aorto-coronary artery bypass graft Social History (Updated 01/19/23 @ 20:[address] Jody Weaver MD) household members: none Smoking Status: Former smoker how long ago did patient quit smoking: Quit in the 1980s, smoked 3 ppd from teen until quit age 30. alcohol intake: never substance use type: does not use Physical Exam Cardio Cardio Narrative: Patient seen and evaluated today at bedside along with the nursing staff symptoms of chest pain resolved Review of the property utilization officer as A-fib with controlled ventricular rate Cardiovascular exam; S1-S2 is regular Chest exam mildly diminished air entry bilateral Examination lower extremity no lower extremity edema noted Risk Stratification Risk Stratification Applicable: Yes Age >/= 65: Yes >/= 3 CAD Risk Factors (HTN, HLD, DM, family hx of CAD, or current smoker): Yes Aspirin Use in the Past 7 Days: Yes Severe Angina (>/= episodes in 24 hours): No EKG ST Changes >/= 0.5mm: No Positive Cardiac Marker: Yes VERNON Risk Stratification Score: 4 VERNON % Risk: 20% Risk Objective Data Vital Signs: Vital Signs Temp Pulse Resp BP Pulse Ox O2 Del Method 98.0 F 67 16 116/79 97 Room Air 01/20/23 09:00 01/20/23 09:00 01/20/23 09:00 01/20/23 09:00 01/20/23 09:00 01/20/23 09:00 Oxygen Delivery Method Room Air Weight: 157 lb 6.561 oz Body Mass Index (BMI) 22.6 Intake & Output: Intake and Output for Last 24 Hours 01/18/23 01/19/23 01/20/23 23:59 23:59 23:59 Intake Total 872.1 / 872.1 0 / 0 Output Total 1420 / 1420 950 / 950 Balance -547.9 / -547.9 -950 / -950 Lab / Micro Data 01/20/23 05:30 01/20/23 05:30 Labs: Laboratory Results - last 24 hr 01/19/23 12:55: PT 14.5, INR 1.1, APTT 31.7, Sodium 139, Potassium 4.0, Chloride 105, Carbon Dioxide 32.0, Anion Gap 2 L, BUN 20 H, Creatinine 0.93, Estim Creat Clear Calc 77.40, Est GFR (MDRD) Af Amer 103, Est GFR (MDRD) Non-Af 85, BUN/Creatinine Ratio 21.5 H, Glucose 82, Calcium 9.4, Magnesium 2.1, Troponin I High Sens 1064 H* 01/19/23 18:08: Troponin I High Sens 786 H* 01/19/23 19:36: Troponin I High Sens 853 H* 01/19/23 22:26: APTT 69.7 H 01/19/23 23:22: Troponin I High Sens 850 H* 01/20/23 05:30: WBC 7.8, RBC 4.34 L, Hgb 13.3, Hct 39.7 L, MCV 91.5, MCH 30.6, MCHC 33.5, RDW Std Deviation 46.4 H, RDW Coeff of Kylie 13.8, Plt Count 176, MPV 8.7, Immature Gran % (Auto) 0.300, Neut % (Auto) 49.2, Lymph % (Auto) 26.7, Summers % (Auto) 10.0, Eos % (Auto) 12.6 H, Baso % (Auto) 1.2 H, Absolute Neuts (auto) 3.8, Absolute Lymphs (auto) 2.08, Nucleated RBC % 0, APTT 61.7 H, Sodium 139, Potassium 4.0, Chloride 104, Carbon Dioxide 30.0, Anion Gap 5, BUN 19 H, Creatinine 0.96, Estim Creat Clear Calc 73.34, Est GFR (MDRD) Af Amer 100, Est GFR (MDRD) Non-Af 82, BUN/Creatinine Ratio 19.8, Glucose 91, Calcium 9.1, Total Bilirubin 0.80, AST 30, ALT 25, Alkaline Phosphatase 81, Total Protein 6.6, Albumin 3.2, Globulin 3.4, Albumin/Globulin Ratio 0.9, Triglycerides 61, Cholesterol 161, LDL Cholesterol 102, VLDL Cholesterol 12, HDL Cholesterol 47 01/20/23 11:30: APTT 43.8 H Rhythm Strip Rhythm Strip: A-fib Rate: 62 Ectopy: None Cardiology Labs/Tests 01/19/23 12:55: PT 14.5, INR 1.1, APTT 31.7, Sodium 139, Potassium 4.0, Chloride 105, Carbon Dioxide 32.0, Anion Gap 2 L, BUN 20 H, Creatinine 0.93, Est GFR (MDRD) Af Amer 103, Est GFR (MDRD) Non-Af 85, BUN/Creatinine Ratio 21.5 H, Glucose 82, Calcium 9.4, Magnesium 2.1 01/19/23 22:26: APTT 69.7 H 01/20/23 05:30: WBC 7.8, RBC 4.34 L, Hgb 13.3, Hct 39.7 L, MCV 91.5, MCH 30.6, MCHC 33.5, Plt Count 176, MPV 8.7, Immature Gran % (Auto) 0.300, Neut % (Auto) 49.2, Lymph % (Auto) 26.7, Summers % (Auto) 10.0, Eos % (Auto) 12.6 H, Baso % (Auto) 1.2 H, Absolute Neuts (auto) 3.8, Nucleated RBC % 0, APTT 61.7 H, Sodium 139, Potassium 4.0, Chloride 104, Carbon Dioxide 30.0, Anion Gap 5, BUN 19 H, Creatinine 0.96, Est GFR (MDRD) Af Amer 100, Est GFR (MDRD) Non-Af 82, BUN/Creatinine Ratio 19.8, Glucose 91, Calcium 9.1, Total Bilirubin 0.80, Triglycerides 61, Cholesterol 161, LDL Cholesterol 102, VLDL Cholesterol 12, HDL Cholesterol 47 01/20/23 11:30: APTT 43.8 H Rhythm: EKG: ECHO: Stress Test: Cardiac Cath: PCI: CT Surgery: Holter monitor: EPS: PPM: CXR: Chest CT Scan: Radiography Diagnostic Testing: Radiology Impression Chest X-Ray 01/19/23 01:20 IMPRESSION: Increased interstitial markings in the lower lobes as well as the right upper lobe suggests of scarring. This has progressed as compared to prior study. Electronically Signed: Benji Spivey MD at 14:10 EST , Venous Doppler Study 01/19/23 13:31 Interpretation Summary No evidence for acute deep venous thrombosis bilateral lower extremities with patent and compressible bilateral great saphenous veins. Pulsatile venous flow is noted bilaterally which is suspicious for proximal venous hypertension or obstruction. Clinical correlation would be appropriate. Ordering Physician: Roz Thomas Referring Physician: Trav Copeland Performed By: Willie Corona RVT Echocardiogram 01/19/23 17:44 Interpretation Summary The estimated ejection fraction is 30-35 %. Severe LV systolic dysfunction Mild to moderate MR Mild AI Mild TR No previous echo to compare. Ordering Physician: Jody Weaver Performed By: Ousmane Rodriguez RCS
[2023-01-20 15:00] VITALS: BP 108/57; PULSE 81; RESP 14; TEMP 36.4; O2SAT 96
[2023-01-20] MEDS: HEPARIN/D5w 25,000 UNITS 25,000 UNITS/250 ML IV.SOLN. 9 UNITS CONT INF (17:50)
[2023-01-20 21:00] VITALS: BP 108/64; PULSE 74; RESP 18; TEMP 37.1; O2SAT 98
[2023-01-20 21:04] LABS: Partial Thromboplast Time 49.3 Seconds (24.1-36.2)
[2023-01-21 03:00] VITALS: BP 101/59; PULSE 67; RESP 16; TEMP 36.7; O2SAT 98
[2023-01-21 04:04] LABS: Partial Thromboplast Time 56.4 Seconds (24.1-36.2)
[2023-01-21 05:37] VITALS: BMI 23.3
--- NOTE | 2023-01-21 07:41 | PN.HOSP_ITS ---
Reason for Visit Reason for Visit: Diagnoses Non-ST elevation (NSTEMI) myocardial infarction (01/19/23) Subjective Subjective Patient seen underwent a 2D echo which demonstrated the estimated ejection fraction is 30-35 %. Severe LV systolic dysfunction, Mild to moderate MR, Mild AI, Mild TR patient subsequently requested transfer to [facility] Objective Data Objective Data Vital Signs: Vital Signs Temp Pulse Resp BP Pulse Ox O2 Del Method 98.1 F 67 16 101/59 L 98 Room Air 01/21/23 03:00 01/21/23 03:00 01/21/23 03:00 01/21/23 03:00 01/21/23 03:00 01/21/23 03:00 Oxygen Delivery Method Room Air Weight: 73.845 kg Body Mass Index (BMI) 23.3 Intake & Output: Intake and Output for Last 24 Hours 01/19/23 01/20/23 01/21/23 23:59 23:59 23:59 Intake Total 872.1 / 872.1 427.23 / 427.23 480 / 480 Output Total 1420 / 1420 1450 / 1450 400 / 400 Balance -547.9 / -547.9 -1022.77 / -1022.77 80 / 80 Lab / Micro Data 01/20/23 05:30 01/20/23 05:30 Labs: Laboratory Results - last 24 hr 01/20/23 11:30: APTT 43.8 H 01/20/23 20:27: APTT 49.3 H 01/21/23 03:46: APTT 56.4 H Radiography Diagnostic Testing: Radiology Impression Echocardiogram 01/19/23 17:44 Interpretation Summary The estimated ejection fraction is 30-35 %. Severe LV systolic dysfunction Mild to moderate MR Mild AI Mild TR No previous echo to compare. Ordering Physician: Jody Weaver Performed By: Ousmane Rodriguez RCS Rhythm Strip Rhythm Strip: A-fib Rate: 62 Ectopy: None Physical Exam Narrative GENERAL: cooperative HEENT: Atraumatic; normocephalic EYES; Anicteric, Normal Conjunctiva NECK; supple, normal thyroid, RESPIRATORY: Diminished to auscultation CARDIOVASCULAR: Regular S1 S2, GI: soft, normoactive bowel sounds, : No Renal angle tenderness; EXTREMITIES: No edema, no clubbing, MUSCULOSKELETAL: no muscle wasting NEURO: Awake; no lateralizing signs. SKIN: No Rash PSYCH; Flat affect Assessment & Plan Assessment/Plan (1) Acute non-ST elevation myocardial infarction (NSTEMI): PLAN: Plan Patient is a 67-year-old male with past medical history single for coronary artery disease with previous CABG who presented with chest pain 1. Acute non-STEMI ? Patient is a 67-year-old gentleman with coronary artery disease status post CABG who presented with chest pain found to have elevated troponin consistent with acute non-STEMI. Treatment initiated per protocol consult placed to cardiology ? 01/21/2023 patient requesting to be transferred to [facility] 2.acute congestive heart failure with reduced ejection fraction ? Unclear type Echo ordered for EF assessment, placed on strict input and output Daily weight IV diuretics ? 01/21/2023; Patient seen underwent a 2D echo which demonstrated the estimated ejection fraction is 30-35 %. Severe LV systolic dysfunction, Mild to moderate MR, Mild AI, Mild TR patient subsequently requested transfer to [facility] 3. Coronary artery disease ? With previous CABG 4. Paroxysmal atrial fibrillation ? Rate controlled not on systemic anticoagulation due to previous recurrent epistaxis 5. History of previous cerebellar CVA 6. Hypertension - Blood pressure on the low side we will continue with monitoring 7. History of colon CA ? Status post partial colectomy currently remission 8. Anemia - Secondary to chronic disorder monitoring H&H and transfuse if patient becomes symptomatic or hemoglobin falls below 7 9. DVT prophylaxis Patient on high Time spent in the patient's overall evaluation,decision-making process, review of diagnostic data, adjustment of management, discussion with other providers, nursing nursing and ancillary staff involved in patient's care documentation, 45 Minutes Charges/Coding Visit Charges Inpatient E&M: 62611 Subs Hosp L2
[2023-01-21 08:17] VITALS: O2SAT 97
[2023-01-21 08:45] VITALS: BP 115/55; PULSE 72; RESP 16; TEMP 36.5; O2SAT 97
[2023-01-21] MEDS: Gabapentin 100 MG Capsule PO ×3 (08:50→16:49)
[2023-01-21] MEDS: Aspirin 81 MG TAB.CHEW PO (08:50)
[2023-01-21] MEDS: Furosemide 20 MG/2 ML VIAL IV (08:51)
[2023-01-21 10:11] LABS: Partial Thromboplast Time 61.9 Seconds (24.1-36.2)
[2023-01-21 14:45] VITALS: BP 115/77; PULSE 78; RESP 16; TEMP 36.6; O2SAT 18
[2023-01-21 16:17] LABS: Partial Thromboplast Time 52.5 Seconds (24.1-36.2)
[2023-01-21] MEDS: HEPARIN/D5w 25,000 UNITS 25,000 UNITS/250 ML IV.SOLN. 11 UNITS CONT INF (16:49)
--- NOTE | 2023-01-21 19:23 | PCM.DC.SUM ---
Providers Date of Admission: 01/19/23 Date of Discharge: 01/21/23 Primary Care Physician: Dr. Trav Copeland MD Consultations 01/19/23 17:44 Consult: Cardiology Routine Consulting Provider: Sondra Evans Reason for Consult: CP, NSTEMI, CHF EMERGENT Consult: No MD Notified: Yes Date Notified: 01/19/23 Time Notified: 15:33 Method of Notification: ED Physician Initiated Reason For Visit: NSTEMI, CHF EXAC Diagnosis Discharge Diagnosis (1) Cerebellar cerebrovascular accident (CVA) without late effect: Status: Chronic Code(s): I63.9 - Cerebral infarction, unspecified (2) Colon cancer: Status: Acute Code(s): C18.9 - Malignant neoplasm of colon, unspecified (3) Atrial fibrillation: Status: Acute Code(s): I48.91 - Unspecified atrial fibrillation (4) Acute non-ST elevation myocardial infarction (NSTEMI): Status: Acute Code(s): I21.4 - Non-ST elevation (NSTEMI) myocardial infarction Plan Patient is a 67-year-old male with past medical history single for coronary artery disease with previous CABG who presented with chest pain 1. Acute non-STEMI ? Patient is a 67-year-old gentleman with coronary artery disease status post CABG who presented with chest pain found to have elevated troponin consistent with acute non-STEMI. Treatment initiated per protocol consult placed to cardiology ? 01/21/2023 patient requesting to be transferred to [facility] 2.acute congestive heart failure with reduced ejection fraction ? Unclear type Echo ordered for EF assessment, placed on strict input and output Daily weight IV diuretics ? 01/21/2023; Patient seen underwent a 2D echo which demonstrated the estimated ejection fraction is 30-35 %. Severe LV systolic dysfunction, Mild to moderate MR, Mild AI, Mild TR patient subsequently requested transfer to [facility] 3. Coronary artery disease ? With previous CABG 4. Paroxysmal atrial fibrillation ? Rate controlled not on systemic anticoagulation due to previous recurrent epistaxis 5. History of previous cerebellar CVA 6. Hypertension - Blood pressure on the low side we will continue with monitoring 7. History of colon CA ? Status post partial colectomy currently remission 8. Anemia - Secondary to chronic disorder monitoring H&H and transfuse if patient becomes symptomatic or hemoglobin falls below 7 9. DVT prophylaxis Patient on high Time spent in the patient's overall evaluation,decision-making process, review of diagnostic data, adjustment of management, discussion with other providers, nursing nursing and ancillary staff involved in patient's care documentation, 45 Minutes Medications at Discharge Home Medications nitroglycerin 0.4 mg sublingual tablet 0.4 mg sublingual Q5M PRN Chest Pain 01/18/13 furosemide 40 mg tablet 40 mg PO DAILY EDEMA 01/19/23 losartan 25 mg tablet 25 mg PO DAILY HTN 01/19/23 potassium chloride 20 mEq tablet,extended release(part/cryst) 20 meq PO BID SUPPLEMENT 01/19/23 spironolactone 25 mg tablet 12.5 mg PO DAILY HTN 01/19/23 Physical Exam Narrative GENERAL: cooperative HEENT: Atraumatic; normocephalic EYES; Anicteric, Normal Conjunctiva NECK; supple, normal thyroid, RESPIRATORY: Diminished to auscultation CARDIOVASCULAR: Regular S1 S2, GI: soft, normoactive bowel sounds, : No Renal angle tenderness; EXTREMITIES: No edema, no clubbing, MUSCULOSKELETAL: no muscle wasting NEURO: Awake; no lateralizing signs. SKIN: No Rash PSYCH; Flat affect Weight / BMI Weight Weight: 73.845 kg Body Mass Index (BMI) 23.3 ABG / Lab / Microbiology Data 01/20/23 05:30 01/20/23 05:30 Laboratory: Laboratory Results - last 24 hr 01/20/23 20:27: APTT 49.3 H 01/21/23 03:46: APTT 56.4 H 01/21/23 09:45: APTT 61.9 H 01/21/23 15:44: APTT 52.5 H D/C Instructions Discharge Diet: No restrictions Discharge Activity: Return to Normal Activity Call your doctor if you observe: Fever of 101 or Higher, Shortness of breath, Fainting spells and Chest pain Meaningful Use Info Meaningful Use Diagnoses (Choose all that apply): CHF CHF CADENCE/ARB ordered at discharge?: Yes Documented LVEF (%): 35 Discharge Plan Admission Admit Date/Time: 01/19/23 15:30 Attending Provider: Kenton Oneil Primary Care Provider: Trav Copeland Consulting Providers: Sondra Evans; Jody Weaver Discharge Orders/Prescriptions Prescriptions: No Action nitroglycerin 0.4 MG tablet 0.4 mg sublingual Q5M PRN (Reason: Chest Pain) Patient Comments: chest pain furosemide 40 mg tablet 40 mg PO DAILY losartan 25 mg tablet 25 mg PO DAILY potassium chloride 20 mEq tablet,ER particles/crystals 20 meq PO BID spironolactone 25 mg tablet 12.5 mg PO DAILY Referrals / Follow Up: Trav Copeland MD [Primary Care Provider] - Disposition Disposition (needs filled in before D/C Order can be placed): Acute Care Hospital Charges/Coding Visit Charges Inpatient E&M: 97399 Disch Hosp >30min
[2023-01-21 20:32] VITALS: BP 107/72; PULSE 72; RESP 18; TEMP 36.9; O2SAT 98
[2023-01-21 23:07] LABS: Partial Thromboplast Time 62.9 Seconds (24.1-36.2)
[2023-01-22 00:45] VITALS: BP 107/72; PULSE 73; RESP 18; TEMP 36.9; O2SAT 97
== END 2023-01-22 01:23 | disposition short-term general hospital (02) | DRG 190 ==
LOC: ED 12:55 → PCU 16:04
PROVIDERS: Hospitalist; Internal Medicine Interventional Cardiology; Admitting Provider Family Medicine; Emergency Provider Emergency Medicine; PCP Family Medicine; Visit Provider Internal Medicine
DX: I21.4 Non-ST elevation (NSTEMI) myocardial infarction (principal); I50.23 Acute on chronic systolic (congestive) heart failure; I11.0 Hypertensive heart disease with heart failure; I48.0 Paroxysmal atrial fibrillation; I08.3 Combined rheumatic disorders of mitral, aortic and tricuspid valves; I25.10 Atherosclerotic heart disease of native coronary artery without angina pectoris; E78.5 Hyperlipidemia, unspecified; I25.2 Old myocardial infarction; Z95.1 Presence of aortocoronary bypass graft; Z86.73 Personal history of transient ischemic attack (TIA), and cerebral infarction without residual deficits; Z87.891 Personal history of nicotine dependence; Z85.038 Personal history of other malignant neoplasm of large intestine
CPT/HCPCS: 36415; 71046; 80048; 80053; 80061; 83735; 83880; 84484; 85025; 85610; 85730; 93005; 93306; 93970; 94668; 97162; 97166; 97802; 99252; 99283; Q9957; A4216; G0463; J1940

== ENCOUNTER 2023-01-25 22:28 | Emergency (ER) | payer MEDICAID, SELFPAY ==
[2023-01-25 22:30] VITALS: BP 157/99; PULSE 72; RESP 18; TEMP 36.4; O2SAT 99; BMI 22.6
--- NOTE | 2023-01-25 23:04 | CT_ITS ---
STUDY: CT BRAIN WITHOUT CONTRAST REASON FOR EXAM: Male, 67 years old. head trauma RADIATION DOSAGE (If Supplied By Facility): CTDIvol = ( 44.99 ) mGy, DLP = ( 846.73 ) mGycm TECHNIQUE: Transaxial CT imaging of the brain was performed without administration of intravenous contrast material. Individualized dose optimization techniques were used for this CT. COMPARISON: No relevant priors. FINDINGS: Fatty lesion overlying the anterior frontal bone likely lipoma measuring 2.2 x 0.5 cm. Otherwise normal soft tissue structures. Normal calvarium. There is mild cerebral atrophy with widening of the extra-axial spaces and ventricular dilatation. Normal white matter tracts of the cerebral hemispheres. Normal basal ganglia and thalami. Normal brainstem. Normal cerebellum. There is no intracranial hemorrhage. There are no findings of an acute ischemic infarction. Normal visualized paranasal sinuses. CT/Brain/Head without Contrast IMPRESSION: Involutional changes otherwise normal CT brain for age. No acute intracranial hemorrhage or space-occupying lesion. Electronically Signed: Kristin Luna MD at 23:59 EST ,
--- NOTE | 2023-01-25 23:04 | ED.VIS.FALL ---
HPI HPI - Fall History of Present Illness Chief Complaint: Fall Informant: patient and spouse/S.O. Occured/Mechanism Occurred: Today and Hours Mechanism/Context: Yes same level fall Pain/Injury Pain Location: head Quality of Pain: Dull Current Severity: Mild Maximum Severity: Mild Associated Symptoms Associated Symptoms: Negative for Parasthesias, Weakness, Loss of function, Inability to ambulate, Loss of consciousness or Amnesia Narrative Narrative: 67-year-old male history of recent heart catheterization done in [facility]. He was recently on heparin. Was just discharged in the hospital yesterday. Blood thinners were just stopped 1 to 2 days ago. Tonight he was at home fell asleep in a rocking chair. He fell out of the rocking chair and struck his forehead. He has a contusion to his forehead. He was told by [facility] that if he had any head injuries he should be evaluated. Due to the recent blood thinner. He has mild discomfort to his head. Denies any neck pain or other injuries. Prior similar symptoms: No Recent Illness/Hospitalization: Yes [facility] Medical History Arteriosclerotic cardiovascular disease CAD (coronary artery disease) Congestive heart failure (CHF) Former smoker History of colon cancer Hyperlipidemia Hypertension Myocardial infarct TIA (transient ischemic attack) Home Medications nitroglycerin 0.4 mg sublingual tablet 0.4 mg sublingual Q5M PRN Chest Pain 01/18/13 [History Last Taken Unknown] furosemide 40 mg tablet 40 mg PO DAILY EDEMA 01/19/23 [History Last Taken 01/19/23] losartan 25 mg tablet 25 mg PO DAILY HTN 01/19/23 [History Last Taken 01/18/23] potassium chloride 20 mEq tablet,extended release(part/cryst) 20 meq PO BID SUPPLEMENT 01/19/23 [History Last Taken 01/18/23] spironolactone 25 mg tablet 12.5 mg PO DAILY HTN 01/19/23 [History Last Taken 01/18/23] Allergy/AdvReac Type Severity Reaction Status Date / Time codeine Allergy Hives Verified 01/25/23 22:30 ibuprofen Allergy Hives Verified 01/25/23 22:30 imipramine [Imipramine] Allergy Hives Verified 01/25/23 22:30 ketorolac tromethamine Allergy Hives Verified 01/25/23 22:30 [From Toradol] naproxen [From Naprosyn] Allergy Hives Verified 01/25/23 22:30 propoxyphene napsylate Allergy Hives Verified 01/25/23 22:30 [From Darvocet-N 100] tramadol Allergy Hives Verified 01/25/23 22:30 acetaminophen [From Vicodin] AdvReac Itching Verified 01/25/23 22:30 hydrocodone [From Vicodin] AdvReac Itching Verified 01/25/23 22:30 Family History Father Heart disease Hypertension CAD (coronary artery disease) Other Hx of CABG Surgical History History of hand surgery Hx of CABG S/P partial colectomy Status post aorto-coronary artery bypass graft Social History household members: none Smoking Status: Never smoker how long ago did patient quit smoking: Quit in the 1980s, smoked 3 ppd from teen until quit age 30. alcohol intake: never substance use type: does not use ROS ROS ED ROS Narrative Denies. Denies recent illness. Review of Systems ROS Unobtainable: Denies due to encephalopathy Constitutional Constitutional ED: Denies chills or fever(s) Eyes Eyes: Denies blurry vision ENT ENT ED: Denies ear pain Cardiovascular Cardiovascular: Denies chest pain Respiratory/Chest Respiratory/Chest: Denies cough Gastrointestinal Gastrointestinal: Denies abdominal pain Genitourinary Genitourinary ED: Denies dysuria Musculoskeletal Musculoskeletal: Denies arthralgias Integumentary Denies abscess Neurologic Neurologic: Reports headache(s) Psychiatric Psychiatric: Denies anxiety or depression Endocrine Endocrinology: Denies polydipsia Hematologic/Lymphatic Hematologic/Lymphatic: Denies easy bleeding Allergic/Immunologic Allergic/Immunologic ED: Denies mouth swelling EXAM Physical Exam Narrative Exam Narrative: Well-appearing 67-year-old male. Vital signs are stable afebrile. H EENT exam pupils round react to light. Extra motions are intact. He has a quarter size contusion the midportion of his forehead. Small abrasion near his left eyebrow and left upper eyelid. It does not need to be sewn. There is no active bleeding. Small amount of dried blood. Scalp otherwise is nontender. C-spine and neck is nontender. Lungs are clear. Heart regular rhythm no murmur. Rate about 70. Chest wall and ribs are nontender. Prior sternotomy. Abdomen soft nontender. Pelvic girdle intact. Moving all 4 extremities. Nontender no deformity. 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 Back and spine nontender. Neurologically is awake and alert with no focal motor deficits. Answering questions following commands. Const Vital Signs: 01/25/23 22:30 01/25/23 22:52 Temperature 97.6 F L Temperature Source Temporal Pulse Rate 72 Respiratory Rate 18 Respiratory Effort Normal Non-Labored Respiratory Depth Normal Respiratory Pattern Normal Blood Pressure 157/99 H Blood Pressure Mean 118 Pulse Ox 99 Oxygen Delivery Method Room Air Room Air Positive well nourished and well developed; Negative for obese, cachectic, contractures or unkempt General Appearance ED: well developed and NAD; Negative for unkempt, cachectic or contractures Nutritional Appearance: Negative for cachectic or obese HEENT Denies normocephalic HEENT Narrative: Forehead contusion. Abrasion near his left eyebrow and eyelid. Small amount of dried blood. trauma and contusion; Negative for atraumatic or hematoma Eyes PERRL and EOMs intact bilaterally General Eye ED: Negative for pale conjunctiva or scleral icterus Neck full ROM, no lymphadenopathy and supple General: Negative for tenderness Chest Wall inspection of chest normal and palpation of chest normal Chest: Negative for other Resp normal respiratory effort, no retractions and clear to auscultation bilaterally Effort and Inspection: Negative for pain with movement Auscultation: Negative for rales, rhonchi or wheezes Cardio regular rate, regular rhythm, S1 normal heart sound, S2 normal heart sound and no murmurs Rate: Negative for bradycardia Rhythm: Negative for abnormal rhythm Bruits: Negative for other GI non-tender, non-distended and no masses Inspection: Negative for abdominal distention Auscultation: normoactive bowel sounds Palpation: soft; Negative for guarding Back/Spine no CVA tenderness General Back: Negative for CVA tenderness Cervical Spine: Negative for cervical spine tenderness Thoracic Spine / Upper Back: Negative for ROM limited Lumbar Spine / Lower Back: Negative for lumbar spinal tenderness Neuro oriented x3, CN's II-XII intact bilaterally, moves all extremities and no focal motor deficits Armour Coma Scale: document GCS findings Spontaneous Obeys Commands Oriented 15 Sensorium / Orientation: alert, oriented to person, oriented to place and oriented to time; Negative for orientation impaired, confused, lethargic or stuporous Motor Exam: strength 5/5 throughout Psych mental status grossly normal and thought process normal Appearance: Negative for unkempt Attitude: No agitated Mood & Affect: Negative for depressed, anxious or tearful Skin General Skin Exam: Negative for other Lesions: no lesions Rashes: no rashes Trauma: Negative for abrasion or laceration MDM MDM MDM Narrative Medical decision making narrative: 67-year-old male fell out of a chair after he fell asleep striking his forehead. Recently was on blood thinners. Has a mild headache. CAT scan will be obtained. Otherwise exam is unremarkable. He is awake and alert. He did not want a thing for pain at this time. Repeat exam patient is doing well at 12:21 AM we discussed his CAT scan results. His exam is unchanged. To be discharged home. History & Record Review Discussion w/independent historian: Patient and Family Additional record(s) reviewed:: Prior outpatient record, Prior ED visit and Prior labs Radiography Diagnostic Testing: Clinical Impression(s) from Imaging Studies Brain CT 01/25/23 23:04 IMPRESSION: Involutional changes otherwise normal CT brain for age. No acute intracranial hemorrhage or space-occupying lesion. Electronically Signed: Kristin Luna MD at 23:59 EST Reading Location ID and State: [address] [place] [address] , Service support , Discharge Plan Triage Chief Complaint: Fall ED Provider: Reji Rich Dx/Rx/DC Orders Clinical Impression: Head injury, History of atrial fibrillation, Hx of CABG, Fall Instructions: ED Head Injury (Adult) Prescriptions: No Action nitroglycerin 0.4 MG tablet 0.4 mg sublingual Q5M PRN (Reason: Chest Pain) Patient Comments: chest pain furosemide 40 mg tablet 40 mg PO DAILY losartan 25 mg tablet 25 mg PO DAILY potassium chloride 20 mEq tablet,ER particles/crystals 20 meq PO BID spironolactone 25 mg tablet 12.5 mg PO DAILY Primary Care Provider: Trav Copeland Referrals: Trav Copeland MD [Primary Care Provider] - As Needed Activity Restrictions/Additional Instructions: Ice to your forehead. Tylenol for pain. Return if severe headache, intractable vomiting or not acting normally. Disposition Disposition: Home, Self Care
[2023-01-26 00:37] VITALS: BP 154/60; PULSE 80; RESP 18; O2SAT 97
== END 2023-01-26 00:38 | disposition home or self-care (01) ==
PROVIDERS: Emergency Provider Emergency Medicine; PCP Family Medicine; Visit Provider Emergency Medicine
DX: S00.83XA Contusion of other part of head, initial encounter (principal); I11.0 Hypertensive heart disease with heart failure; I50.9 Heart failure, unspecified; I48.91 Unspecified atrial fibrillation; S00.212A Abrasion of left eyelid and periocular area, initial encounter; W07.XXXA Fall from chair, initial encounter; Y93.84 Activity, sleeping; Y92.009 Unspecified place in unspecified non-institutional (private) residence as the place of occurrence of the external cause; I25.10 Atherosclerotic heart disease of native coronary artery without angina pectoris; E78.5 Hyperlipidemia, unspecified; I25.2 Old myocardial infarction; Z87.891 Personal history of nicotine dependence; Z95.1 Presence of aortocoronary bypass graft
CPT/HCPCS: 70450; 99284

== ENCOUNTER 2024-07-31 08:34 | Outpatient (RCR) | payer MEDICAID, SELFPAY ==
--- NOTE | 2024-07-31 09:33 | HP.PTEVAL_ITS ---
Patient's Visit Information Visit Information Visit Information: JORGE LUIS ELMORE is a 69 year old M referred to Physical Therapy by BRISEYDA Clemons with a diagnosis of Chronic Heart Failure. Date of Evaluation: 07/31/24 Physical Therapist: Acacia Sweell DPT Visit Plan Frequency: 1x/Week Duration: 1 Week Plan: Get approval for a scooter Subjective Subjective: Patient reports he had a massive heart attack when he was in his 30's and he has an extensive past medical history in his heart. He is now having issues with his legs swelling up. He gets around his house and its about [address] the hallway and about 50 feet to his car. His car is not currently working and his friends are helping him. He has pain in his legs once anywhere from 3-5-10 depending on how much he pushes then his chest starts to hurt. He gets really short of breathe when it gets into his chest. He lives in a single floor apartment- with a flat entry with handicap accessible- its made for wheelchairs. He lives alone- he has an aid that comes 5x a week that helps with cleaning, cooking and once in awhile grocery shopping. He has family that lives close but they are working. He has a walker and a cane- he has a hard time using them because they are hard to push. 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 PMHX/Meds: see list in chart. Objective Objective: Posture: forward head, rounded shoulders- can correct but does not maintain Gait: decreased step length bilateral- poor heel/toe pattern- posterior lean- wide base of support- 50 feet then requires rest break due to SOB and leg pain- no AD HR/TR: unable ROM: WNL in all planes Strength: Core: fair, LE: Hip: 4-/5 throughout, Knee: 4/4, Ankle: 4/5 Scap: fair UE: 4/5 throughout. Flex: HS: severe, Gastroc: moderate Balance/Special Test Scores Functional Gait Assessment Score: 12 % Disability: 60.0000 Rehabilitation Potential Physical Therapy Diagnosis: Patient presents with decreased LE and core strength/stabilization, proprioception, flex and muscular endurance leading to increased fall risk, poor mobility and decreased ability to perform ADL's. Rehabilitation Potential: Fair Anticipated Interventions Text: Thank you for the opportunity to evaluate your patient. For Medicare and Medicare HMO plans, please review the plan of care and approve it. It will need to be FAXED BACK to us at [phone] for Medicare purposes. For Medicare only, by signing this I certify the plan of care. Please let me know if there are questions or concerns regarding this plan of care. Physician Signature: Date:
--- NOTE | 2024-07-31 09:34 | HP.PTDCSUM ---
Discharge Summary D/C summary: It has been my pleasure to treat JORGE LUIS ELMORE referred by BRISEYDA Clemons, with the diagnosis of Chronic Heart Failure for a total of 1 visit(s). Discharge Date: 07/31/24 Please see the following information for a summary of their discharge status. Plan Plan: Get approval for a scooter D/C Information Discharge Comments: Scooter Evaluation d/c sentence: If there are questions or concerns regarding this patient's physical therapy, please feel free to call me at [phone]. Thank you for the referral of this patient. Sincerely, Acacia Sewell, DPT Balance/Gait/Functional tests Balance/Special Test Scores Functional Gait Assessment Score: 12 % Disability: 60.0000
== END 2024-07-31 10:29 | disposition home or self-care (01) ==
LOC: PT 08:34
PROVIDERS: PCP Family Medicine; Referring Provider Registered Nurse; Visit Provider Registered Nurse
DX: I50.22 Chronic systolic (congestive) heart failure (principal); I25.10 Atherosclerotic heart disease of native coronary artery without angina pectoris; I73.9 Peripheral vascular disease, unspecified; Z74.09 Other reduced mobility; R68.89 Other general symptoms and signs
CPT/HCPCS: 97162